=== PATIENT | female | born 1935 | race Caucasian/White ===

== ENCOUNTER 2017-03-08 16:02 | Inpatient (IN) | payer MEDICARE, MEDICAID ==
--- NOTE | 2017-03-08 16:57 | ED PDOC ---
HPI: Back Time Seen by Provider: 03/08/17 16:17 Chief Complaint (Nursing): Back Pain Chief Complaint (Provider): Back Pain and foot pain History Per: Patient History/Exam Limitations: no limitations Onset/Duration Of Symptoms: Hrs ([id number]) Additional History Per: Family (Son) Additional Complaint(s): Annel Perez is an 81 year old female with a past medical history of hypertension, diabetes, deep vein thrombosis, and Alzheimer disease who presents to the ED accompanied by her son with a chief complaint of back and foot pain onset this morning. Associated symptoms include neck pain but denies any loss of consciousness, focal weakness, or blurry vision. Of note patient has Alzheimer disease. Patient states at 2:30 am she fell off her bed. Patient is unable to get up and walk without alot of assistance since then. Has since been in bed. Patient son believes she was sleeping too close to the edge, fell and hit her head on the night stand. PMD: Dr. Brady Terry. Past Medical History Reviewed: Historical Data, Nursing Documentation, Vital Signs Vital Signs: Last Vital Signs Temp 98.2 F 03/08/17 16:05 Pulse 82 03/08/17 16:05 Resp 20 03/08/17 16:05 BP 152/58 H 03/08/17 16:05 Pulse Ox 98 03/08/17 16:05 - Medical History PMH: Alzheimer's Disease, Diabetes, Deep Vein Thrombosis, HTN, Hypercholesterolemia Denies: Chronic Kidney Disease - Surgical History Surgical History: No Surg Hx - Family History Family History: States: Unknown Family Hx - Social History Current smoker - smoking cessation education provided: No Ex-Smoker (has not smoked in the last 12 months): No Alcohol: None Drugs: Denies - Immunization History Hx Tetanus Toxoid Vaccination: No Hx Influenza Vaccination: No Hx Pneumococcal Vaccination: No - Home Medications Home Medications: Ambulatory Orders Medication Instructions Recorded Folic Acid/Vit Bcomp,C/Cu/Zinc 1 tab PO DAILY 12/20/14 [Folbee Plus Cz Tablet] Insulin Glargine,Hum.rec.anlog 6 unit SC DAILY 12/20/14 [Lantus] Memantine HCl [Namenda Xr] 28 mg PO DAILY 12/20/14 Metolazone 5 mg PO QOD6 12/20/14 Pioglitazone HCl/Glimepiride 1 tab PO DAILY 12/20/14 [Duetact 30-2 mg Tablet] Rosuvastatin Calcium [Crestor] 10 mg PO HS 12/20/14 Sevelamer Carbonate [Renvela] 800 mg PO BID 12/20/14 Sitagliptin Phosphate [Januvia] 100 mg PO DAILY 12/20/14 Cefuroxime Axetil [Cefuroxime] 500 mg PO BID #20 tablet 11/07/16 Rivastigmine 3 mg PO BID 11/07/16 - Allergies Allergies/Adverse Reactions: Allergies Allergy/AdvReac Type Severity Reaction Status Date / Time No Known Allergies Allergy Verified 11/07/16 15:34 Review of Systems ROS Statement: Except As Marked, All Systems Reviewed And Found Negative Eyes: Negative for: Vision Change Musculoskeletal: Positive for: Neck Pain, Back Pain, Foot Pain Neurological: Negative for: Weakness (No focal weakness), Other (No Loss of consciousness) - Laboratory Results Result Diagrams: 03/08/17 17:28 03/08/17 17:28 Interpretation Of Abn Labs: Elevated BUN/Cr similar to previous, otherwise no emergent clinically significant lab abnormalities. - ECG ECG Rhythm: Positive for: Normal ST Segment, Sinus Rhythm (w PACs) O2 Sat by Pulse Oximetry: 98 Pulse Ox Interpretation: Normal - Radiology X-Ray: Read By Radiologist - Progress ED Course And Treament: 1634: Foot PROCEDURE: Bilateral Feet Radiographs. HISTORY: bilateral foot pain with hematoma s/p fall COMPARISON: None. FINDINGS: BONES: Right Foot: Suspected nondisplaced fracture 5th metatarsal head. No other fracture identified. Left Foot: Normal. No fracture. JOINTS: Right Foot: Normal. No osteoarthritis. Left Foot: Normal. No osteoarthritis. SOFT TISSUES: Right Foot: Normal. Left Foot: Normal. OTHER FINDINGS: None. IMPRESSION: Suspected nondisplaced fracture right 5th metatarsal head. Please correlate with exam. No other significant abnormality is identified. 1634: Chest PROCEDURE: CHEST RADIOGRAPH, 1 VIEW HISTORY: fall injury COMPARISON: 11/02/2011 FINDINGS: LUNGS: Clear. PLEURA: No pneumothorax or pleural fluid seen. CARDIOVASCULAR: Normal. OSSEOUS STRUCTURES: Nondisplaced fracture right 6th rib laterally, of indeterminate age. Please correlate with clinical exam. No other fracture identified. VISUALIZED UPPER ABDOMEN: Normal. OTHER FINDINGS: None. IMPRESSION: Nondisplaced fracture right 6th rib laterally, indeterminate age. Please correlate with exam. Otherwise unremarkable examination. 1633: Thoracic Spine HISTORY: back pain s/p fall COMPARISON: No prior. FINDINGS: BONES: Mild anterior T12 wedge compression deformity of indeterminate age. Remaining vertebral bodies are maintained in height. Normal vertebral alignment is maintained. There is mild thoracic levo scoliotic curvature. DISC SPACES: Normal. SOFT TISSUES: Normal. OTHER FINDINGS: None. IMPRESSION: Mild anterior T12 wedge compression deformity of indeterminate age. Mild thoracic levoscoliosis. 1633: Lumbar Spine PROCEDURE: Radiographs of the Lumbar Spine. HISTORY: back pain s/p fall COMPARISON: No prior. FINDINGS: BONES: Mild T12 anterior wedge compression deformity, age indeterminate. . The remaining vertebral bodies are maintained in height. The transverse processes and posterior elements appear intact. DISC SPACES: Unremarkable. OTHER FINDINGS: None. IMPRESSION: Mild T12 anterior wedge compression deformity of indeterminate age. No additional abnormality. 1633: Cervical Spine PROCEDURE: CT Cervical Spine without contrast HISTORY: <fall head injury neck pain> COMPARISON: None available. TECHNIQUE: Axial computed tomography images were obtained of the cervical spine without the use of intravenous contrast. Coronal and sagittal reformatted images were created and reviewed. Radiation dose: Total exam DLP = 406.17 mGy-cm. This CT exam was performed using one or more of the following dose reduction techniques: Automated exposure control, adjustment of the mA and/or kV according to patient size, and/or use of iterative reconstruction technique. FINDINGS: VERTEBRAE: Vertebral bodies are maintained in height. The transverse processes and posterior elements are intact. Incidental note is made of a small ovoid corticated ossific density inferior to the anterior midline C1 vertebra, an accessory ossicle. Normal variant. . . DISCS/SPINAL CANAL/NEURAL FORAMINA: No significant central canal or neural foraminal stenosis. Discs heights are grossly preserved. Possible left parasagittal C6-7 disc herniation of uncertain chronicity. Evaluation on the basis of this CT is limited. Consider examination on a nonemergent basis if clinically warranted. PARASPINAL SOFT TISSUES: Unremarkable. OTHER FINDINGS: None. IMPRESSION: No evidence of fracture or dislocation. Possible left parasagittal disc herniation at C6-7, uncertain chronicity. Consider nonemergent evaluation with magnetic resonance imaging if clinically warranted. 1632: Head PROCEDURE: CT HEAD WITHOUT CONTRAST. HISTORY: fall head injury COMPARISON: 11/02/2011 TECHNIQUE: Axial computed tomography images were obtained through the head/brain without intravenous contrast. Radiation dose: Total exam DLP = 834.64 mGy-cm. This CT exam was performed using one or more of the following dose reduction techniques: Automated exposure control, adjustment of the mA and/or kV according to patient size, and/or use of iterative reconstruction technique. FINDINGS: HEMORRHAGE: No intracranial hemorrhage. BRAIN: No mass effect or edema. Moderate diffuse age-appropriate cerebral atrophy. Mild periventricular white matter lucency consistent microvascular white matter ischemic change. No evidence of acute infarct. VENTRICLES: No hydrocephalus. Incidentally noted asymmetry of the atria of the lateral ventricles unchanged from prior examination and likely developmental in origin. CALVARIUM: Unremarkable. PARANASAL SINUSES: Unremarkable as visualized. No significant inflammatory changes. MASTOID AIR CELLS: Unremarkable as visualized. No inflammatory changes. OTHER FINDINGS: None. IMPRESSION: No intracranial hemorrhage. Age-appropriate involutional changes. Scribe Attestation: Documented by Erica Donahue acting as a scribe for Carlene Smith MD. Provider Scribe Attestation: All medical record entries made by the Scribe were at my direction and personally dictated by me. I have reviewed the chart and agree that the record accurately reflects my personal performance of the history, physical exam, medical decision making, and the department course for this patient. I have also personally directed, reviewed, and agree with the discharge instructions and disposition. Re-evaluation Time: 19:00 Condition: Unchanged Medical Decision Making Medical Decision Making: Back pain with compression fracture, foot fracture, and rib fracture s/p fall. Injuries preventing patient from being able to walk steadily. High likelihood of recurrent fall at home. Needs hospitalization for management, pain control and physical therapy. Disposition - Clinical Impression Clinical Impression: Back pain, Foot fracture, Rib fracture, Wedge compression fracture of twelfth thoracic vertebra Discussed With : Chandni Montalvo Doctor Will See Patient In The: Hospital Counseled Patient/Family Regarding: Studies Performed, Diagnosis - Disposition Disposition Time: 19:00 Condition: FAIR - Pt Status Changed To: Hospital Disposition Of: Inpatient - Admit Certification Admit to Inpatient:: After my assessment, the patient will require hospitalization for at least two midnights. This is because of the severity of symptoms shown, intensity of services needed, and/or the medical risk in this patient being treated as an outpatient. - POA Present On Arrival: Falls Or Trauma, Deep Vein Thrombosis / PE (h/o DVT)
--- NOTE | 2017-03-08 17:08 | CT ---
PROCEDURE: CT HEAD WITHOUT CONTRAST. HISTORY: fall head injury COMPARISON: 11/02/2011 TECHNIQUE: Axial computed tomography images were obtained through the head/brain without intravenous contrast. Radiation dose: Total exam DLP = 834.64 mGy-cm. This CT exam was performed using one or more of the following dose reduction techniques: Automated exposure control, adjustment of the mA and/or kV according to patient size, and/or use of iterative reconstruction technique. FINDINGS: HEMORRHAGE: No intracranial hemorrhage. BRAIN: No mass effect or edema. Moderate diffuse age-appropriate cerebral atrophy. Mild periventricular white matter lucency consistent microvascular white matter ischemic change. No evidence of acute infarct. VENTRICLES: No hydrocephalus. Incidentally noted asymmetry of the atria of the lateral ventricles unchanged from prior examination and likely developmental in origin. CALVARIUM: Unremarkable. PARANASAL SINUSES: Unremarkable as visualized. No significant inflammatory changes. MASTOID AIR CELLS: Unremarkable as visualized. No inflammatory changes. OTHER FINDINGS: None. IMPRESSION: No intracranial hemorrhage. Age-appropriate involutional changes.
--- NOTE | 2017-03-08 17:21 | CT ---
PROCEDURE: CT Cervical Spine without contrast HISTORY: <fall head injury neck pain> COMPARISON: None available. TECHNIQUE: Axial computed tomography images were obtained of the cervical spine without the use of intravenous contrast. Coronal and sagittal reformatted images were created and reviewed. Radiation dose: Total exam DLP = 406.17 mGy-cm. This CT exam was performed using one or more of the following dose reduction techniques: Automated exposure control, adjustment of the mA and/or kV according to patient size, and/or use of iterative reconstruction technique. FINDINGS: VERTEBRAE: Vertebral bodies are maintained in height. The transverse processes and posterior elements are intact. Incidental note is made of a small ovoid corticated ossific density inferior to the anterior midline C1 vertebra, an accessory ossicle. Normal variant. . . DISCS/SPINAL CANAL/NEURAL FORAMINA: No significant central canal or neural foraminal stenosis. Discs heights are grossly preserved. Possible left parasagittal C6-7 disc herniation of uncertain chronicity. Evaluation on the basis of this CT is limited. Consider examination on a nonemergent basis if clinically warranted. PARASPINAL SOFT TISSUES: Unremarkable. OTHER FINDINGS: None. IMPRESSION: No evidence of fracture or dislocation. Possible left parasagittal disc herniation at C6-7, uncertain chronicity. Consider nonemergent evaluation with magnetic resonance imaging if clinically warranted.
[2017-03-08 17:54] LABS: BASO # 0.1 K/uL (0.0-0.2); BASO % 1.2 % (0.0-2.0); EOS # 0.4 K/uL (0.0-0.7); EOS % 3.3 % (0.0-4.0); HEMOGLOBIN 11.9 g/dL (12.0-16.0); LYMPH # 3.7 K/uL (1.0-4.3); LYMPH % 32.8 % (20.0-40.0); MEAN CELL VOLUME 93.1 fl (81.0-99.0); MEAN CORPUSCULAR HEMOGLOBIN 30.1 pg (27.0-31.0); MEAN CORPUSCULAR HGB CONC 32.4 g/dL (33.0-37.0); MEAN PLATELET VOLUME 10.3 fl (7.2-11.7); MONO # 1.2 K/uL (0.0-0.8); MONO % 10.3 % (0.0-10.0); NEUT # 5.9 K/uL (1.8-7.0); NEUT % 52.4 % (50.0-75.0); NRBC % 0.3 % (0.0-0.0); RBC 3.95 Mil/uL (3.80-5.20); RED CELL DISTRIBUTION WIDTH 18.3 % (11.5-14.5); WHITE BLOOD COUNT 11.3 K/uL (4.8-10.8)
[2017-03-08 18:00] LABS: ALB/GLOB RATIO 1.4 (1.0-2.1); ALT/SGPT 27 U/L (9-52); AST/SGOT 28 U/L (14-36); BLOOD UREA NITROGEN 51 mg/dl (7-17); CALCIUM 9.6 mg/dL (8.4-10.2); GFR AFRICAN-AMERICAN 33; GFR NON-AFRICAN AMERICAN 27; MAGNESIUM 1.8 MG/DL (1.6-2.3)
--- NOTE | 2017-03-08 18:09 | RAD ---
PROCEDURE: Radiographs of the Lumbar Spine. HISTORY: back pain s/p fall COMPARISON: No prior. FINDINGS: BONES: Mild T12 anterior wedge compression deformity, age indeterminate. . The remaining vertebral bodies are maintained in height. The transverse processes and posterior elements appear intact. DISC SPACES: Unremarkable. OTHER FINDINGS: None. IMPRESSION: Mild T12 anterior wedge compression deformity of indeterminate age. No additional abnormality.
--- NOTE | 2017-03-08 18:10 | RAD ---
HISTORY: back pain s/p fall COMPARISON: No prior. FINDINGS: BONES: Mild anterior T12 wedge compression deformity of indeterminate age. Remaining vertebral bodies are maintained in height. Normal vertebral alignment is maintained. There is mild thoracic levo scoliotic curvature. DISC SPACES: Normal. SOFT TISSUES: Normal. OTHER FINDINGS: None. IMPRESSION: Mild anterior T12 wedge compression deformity of indeterminate age. Mild thoracic levoscoliosis.
[2017-03-08 18:13] LABS: INR 0.9 (0.9-1.2); PARTIAL THROMBOPLASTIN TIME 18.3 Seconds (25.6-37.1); PROTHROMBIN TIME 10.5 Seconds (9.8-13.1)
--- NOTE | 2017-03-08 18:25 | RAD ---
PROCEDURE: CHEST RADIOGRAPH, 1 VIEW HISTORY: fall injury COMPARISON: 11/02/2011 FINDINGS: LUNGS: Clear. PLEURA: No pneumothorax or pleural fluid seen. CARDIOVASCULAR: Normal. OSSEOUS STRUCTURES: Nondisplaced fracture right 6th rib laterally, of indeterminate age. Please correlate with clinical exam. No other fracture identified. VISUALIZED UPPER ABDOMEN: Normal. OTHER FINDINGS: None. IMPRESSION: Nondisplaced fracture right 6th rib laterally, indeterminate age. Please correlate with exam. Otherwise unremarkable examination.
--- NOTE | 2017-03-08 18:28 | RAD ---
PROCEDURE: Bilateral Feet Radiographs. HISTORY: bilateral foot pain with hematoma s/p fall COMPARISON: None. FINDINGS: BONES: Right Foot: Suspected nondisplaced fracture 5th metatarsal head. No other fracture identified. Left Foot: Normal. No fracture. JOINTS: Right Foot: Normal. No osteoarthritis. Left Foot: Normal. No osteoarthritis. SOFT TISSUES: Right Foot: Normal. Left Foot: Normal. OTHER FINDINGS: None. IMPRESSION: Suspected nondisplaced fracture right 5th metatarsal head. Please correlate with exam. No other significant abnormality is identified.
[2017-03-09] MEDS ORDERED: Sodium Chloride 0.45% 1,000 ML IV SCH
--- NOTE | 2017-03-09 01:20 | CP.PCM.CON ---
History of Present Illness - History of Present Illness History of Present Illness: 81 year old female with PMHx Alzheimer's, HTN, DM, DVT seen in the ED complaining of back and foot pain. Patient seen resting in bed comfortably, NAD. Patient is a poor historian. Per ED and son, patient fell off of her bed at 2:30 this morning. Patient denies any pain when asked, but son reports throbbing pain on the side of her right foot and her back. No other pedal complaints at this time. PMH: Alzheimer's, DM, DVT, HTN,HLD PSH: none Meds: see med list FH: non-contributory All: NKDA Past Patient History - Infectious Disease Hx of Infectious Diseases: None - Past Medical History & Family History Past Medical History?: Yes - Past Social History Alcohol: None Drugs: Denies - CARDIAC Hx Cardiac Disorders: Yes - PULMONARY Hx Respiratory Disorders: No - NEUROLOGICAL Hx Neurological Disorder: Yes - HEENT Hx HEENT Problems: No - RENAL Hx Chronic Kidney Disease: No - ENDOCRINE/METABOLIC Hx Endocrine Disorders: Yes - HEMATOLOGICAL/ONCOLOGICAL Hx Blood Disorders: Yes - INTEGUMENTARY Hx Dermatological Problems: No - MUSCULOSKELETAL/RHEUMATOLOGICAL Hx Musculoskeletal Disorders: Yes - GASTROINTESTINAL Hx Gastrointestinal Disorders: No - GENITOURINARY/GYNECOLOGICAL Hx Genitourinary Disorders: No - PSYCHIATRIC Hx Psychophysiologic Disorder: No - SURGICAL HISTORY Hx Surgeries: No - ANESTHESIA Hx Anesthesia: No Hx Anesthesia Reactions: No Hx Malignant Hyperthermia: No Meds Allergies/Adverse Reactions: Allergies Allergy/AdvReac Type Severity Reaction Status Date / Time No Known Allergies Allergy Verified 11/07/16 15:34 - Medications Medications: Current Medications Acetaminophen (Tylenol 325mg Tab) 650 mg PO Q6 PRN PRN Reason: Pain, Mild (1-3) Alendronate Sodium (Fosamax) 70 mg PO QWK [facility] Allopurinol (Zyloprim) 100 mg PO DAILY [facility] Heparin Sodium (Porcine) (Heparin) 5,000 units SC Q8 [facility] PRN Reason: Protocol Last Admin: 03/09/17 00:33 Dose: 5,000 units Home Med (Memantine Hcl/Donepezil Hcl [Namzaric 28 Mg-10 Mg Capsule]) 28 mg PO DAILY [facility] Sodium Chloride (Sodium Chloride 0.45%) 1,000 mls @ 80 mls/hr IV .[id number] [facility] Stop: 03/10/17 00:00 Last Admin: 03/09/17 00:27 Dose: 80 mls/hr Insulin Human Lispro (Humalog) 0 units SC ACCU-CHECK [facility] PRN Reason: Protocol Loratadine (Claritin) 10 mg PO DAILY [facility] Losartan Potassium (Cozaar) 25 mg PO DAILY [facility] Metolazone (Zaroxolyn) 5 mg PO DAILY [facility] Metoprolol Tartrate (Lopressor) 25 mg PO Q12 [facility] Sevelamer HCl (Renagel) 800 mg PO BID [facility] Sitagliptin Phosphate (Januvia) 100 mg PO DAILY [facility] Tramadol HCl (Ultram) 50 mg PO Q6 PRN PRN Reason: Pain, moderate (4-7) Physical Exam - Constitutional Appears: Well, Non-toxic, No Acute Distress - Extremities Exam Additional comments: Vasc: DP and PT pulses palpable 1/4 b/l. CFT <3 seconds to all digits b/l. TG warm to warm. Neuro: Gross sensation diminished. Derm: Ecchymosis noted to the dorsal aspect of right 5th met head. Ortho: pain on palpation noted to the right 5th met head. pain upon ROM 5th MPJ - Neurological Exam Neurological exam: Alert - Psychiatric Exam Psychiatric exam: Normal Affect, Normal Mood Results - Vital Signs Recent Vital Signs: Last Vital Signs Temp 98.4 F 03/09/17 00:19 Pulse 79 03/09/17 00:19 Resp 20 03/09/17 00:19 BP 152/65 H 03/09/17 00:19 Pulse Ox 98 03/09/17 00:19 - Labs Result Diagrams: 03/08/17 17:28 03/08/17 17:28 Assessment & Plan - Assessment and Plan (Free Text) Assessment: 81 year old female with PMHx HTN, DM, DVT, and Alzheimer's with nondisplaced 5th met head fx, right foot, secondary to trauma. Plan: Patient seen and evaluated at bedside. Discussed with attending, Dr. Negro. Charts, labs, vitals reviewed = afebrile, WBC leukocytosis @ 11.3 Right foot XR reviewed: Suspected nondisplaced fracture right 5th metatarsal head. Per ED note, patient will require hospitalization for at least 2 midnights due to severity of symptoms. Surgical shoe applied to right foot. Patient is to be NWB right foot. Podiatry will continue to monitor while in house. - Date & Time Date: 03/08/17 Time: 18:00
[2017-03-09] MEDS: Insulin Lispro (humaLOG) 100 Units/ml Inj SC SCH ×4 (06:54→22:06)
[2017-03-09] MEDS ORDERED: ALENDRONATE 70 MG TAB PO SCH (09:00)
[2017-03-09] MEDS: metOLazone 5 MG TAB PO SCH (09:21)
--- NOTE | 2017-03-09 11:27 | CP.PCM.CON ---
History of Present Illness - History of Present Illness History of Present Illness: ID: 81 yo female CC: pain in the thoracic spine and r costal margin HPI: p[t sustained fall withpain and restricted ROM thoracic spine/lumbar spine / and costal margin Encounter is accomplished at the bedside in the prescence of the culturally competetnt director of campus recreation her daughter and nurse Sharon Pt had sustained fall with injury to thoacic spine/Lumbar spine and costal margin Past Patient History - Infectious Disease Hx of Infectious Diseases: None - Past Medical History & Family History Past Medical History?: Yes - Past Social History Alcohol: None Drugs: Denies - CARDIAC Hx Cardiac Disorders: Yes - PULMONARY Hx Respiratory Disorders: No - NEUROLOGICAL Hx Neurological Disorder: Yes - HEENT Hx HEENT Problems: No - RENAL Hx Chronic Kidney Disease: No - ENDOCRINE/METABOLIC Hx Endocrine Disorders: Yes - HEMATOLOGICAL/ONCOLOGICAL Hx Blood Disorders: Yes - INTEGUMENTARY Hx Dermatological Problems: No - MUSCULOSKELETAL/RHEUMATOLOGICAL Hx Musculoskeletal Disorders: Yes - GASTROINTESTINAL Hx Gastrointestinal Disorders: No - GENITOURINARY/GYNECOLOGICAL Hx Genitourinary Disorders: No - PSYCHIATRIC Hx Psychophysiologic Disorder: No - SURGICAL HISTORY Hx Surgeries: No - ANESTHESIA Hx Anesthesia: No Hx Anesthesia Reactions: No Hx Malignant Hyperthermia: No Meds Allergies/Adverse Reactions: Allergies Allergy/AdvReac Type Severity Reaction Status Date / Time No Known Allergies Allergy Verified 11/07/16 15:34 - Medications Medications: Current Medications Acetaminophen (Tylenol 325mg Tab) 650 mg PO Q6 PRN PRN Reason: Pain, Mild (1-3) Alendronate Sodium (Fosamax) 70 mg PO QWK [facility] Allopurinol (Zyloprim) 100 mg PO DAILY [facility] Last Admin: 03/09/17 09:24 Dose: 100 mg Heparin Sodium (Porcine) (Heparin) 5,000 units SC Q8 [facility] PRN Reason: Protocol Last Admin: 03/09/17 09:22 Dose: 5,000 units Home Med (Memantine Hcl/Donepezil Hcl [Namzaric 28 Mg-10 Mg Capsule]) 28 mg PO DAILY [facility] Sodium Chloride (Sodium Chloride 0.45%) 1,000 mls @ 80 mls/hr IV .[id number] [facility] Stop: 03/10/17 00:00 Last Admin: 03/09/17 00:27 Dose: 80 mls/hr Insulin Human Lispro (Humalog) 0 units SC ACCU-CHECK [facility] PRN Reason: Protocol Last Admin: 03/09/17 06:54 Dose: Not Given Loratadine (Claritin) 10 mg PO DAILY [facility] Last Admin: 03/09/17 09:21 Dose: 10 mg Losartan Potassium (Cozaar) 25 mg PO DAILY [facility] Last Admin: 03/09/17 09:21 Dose: 25 mg Metolazone (Zaroxolyn) 5 mg PO DAILY [facility] Last Admin: 03/09/17 09:21 Dose: 5 mg Metoprolol Tartrate (Lopressor) 25 mg PO Q12 [facility] Last Admin: 03/09/17 09:22 Dose: 25 mg Sevelamer HCl (Renagel) 800 mg PO BID [facility] Last Admin: 03/09/17 09:21 Dose: 800 mg Sitagliptin Phosphate (Januvia) 100 mg PO DAILY [facility] Last Admin: 03/09/17 09:22 Dose: 100 mg Tramadol HCl (Ultram) 50 mg PO Q6 PRN PRN Reason: Pain, moderate (4-7) Physical Exam - Skin Additional comments: systemic exam - wnl encounter in prescenc of culturally competent director of campus recreation Musculoskekltal stance/gait- deferred + tenderness to p[alpation at costal margin no decrease in breath sounds + tenderness to percussion thoracic spine No gross /progressive neuro deficits Results - Vital Signs Recent Vital Signs: Last Vital Signs Temp 98.7 F 03/09/17 08:40 Pulse 61 03/09/17 09:22 Resp 20 03/09/17 08:40 BP 144/61 03/09/17 09:22 Pulse Ox 95 03/09/17 08:40 - Labs Result Diagrams: 03/08/17 17:28 03/08/17 17:28 Labs: Laboratory Results - last 24 hr 03/09/17 03/09/17 00:45 10:40 POC Glucose (mg/dL) 279 H Troponin I < 0.0120 - EKG Data EKG comments: Xray fx 6th rib compression fx thoracici spine compression fx lumbar spine Assessment & Plan - Assessment and Plan (Free Text) Assessment: A- multiple compression fxs - thoracic and lumbar spine - age indeterminate fx 6th rib P activity modificiation possible bracing OOB
[2017-03-09 11:57] LABS: MEAN CELL VOLUME 92.3 fl (81.0-99.0); MEAN CORPUSCULAR HGB CONC 32.5 g/dL (33.0-37.0); RBC 3.67 Mil/uL (3.80-5.20); RED CELL DISTRIBUTION WIDTH 17.7 % (11.5-14.5); WHITE BLOOD COUNT 9.1 K/uL (4.8-10.8)
[2017-03-09 12:25] LABS: BLOOD UREA NITROGEN 44 mg/dl (7-17); GFR AFRICAN-AMERICAN 37; GFR NON-AFRICAN AMERICAN 31
--- NOTE | 2017-03-09 19:13 | CARD ---
APPROVED REPORT EXAM: Two-dimensional and M-mode echocardiogram with Doppler and color Doppler. Other Information Quality : GoodRhythm : NSR INDICATION S/P Fall 2D DIMENSIONS Left Atrium (2D)3.47 (1.6-4.0cm)IVSd0.99 (0.7-1.1cm) Aortic Root (2D)2.60 (2.0-3.7cm)LVDd4.54 (3.9-5.9cm) PWd0.90 (0.7-1.1cm)IVSs1.23 (0.8-1.2cm) LVDs2.41 (2.5-4.0cm)FS (%) 47.1 % PWs1.05 (0.8-1.2cm)LVEF (%)72.0 (>50%) M-Mode DIMENSIONS Left Atrium (MM)3.86 (2.5-4.0cm)IVSd1.16 (0.7-1.1cm) Aortic Root2.56 (2.2-3.7cm)LVDd5.02 (4.0-5.6cm) Aortic Cusp Exc.1.71 (1.5-2.0cm)PWd0.97 (0.7-1.1cm) MV EPSS1.6 (<0.5cm)IVSs1.60 cm FS (%) 35 %LVDs3.25 (2.0-3.8cm) PWs1.57 cmLVEF (%)64 (>50%) Mitral Valve E/A ratio0.0 TDI Lateral E' Peak V8.96cm/sMedial E' Peak V9.04cm/sE/Lateral E'0.0 E/Medial E'0.0 Tricuspid Valve TR Peak [id number] [id number] Peak Gr.33mmHg [id number] LEFT VENTRICLE The left ventricle is normal size. There is borderline concentric left ventricular hypertrophy. The left ventricular function is normal. The left ventricular ejection fraction is within the normal range. There is normal LV segmental wall motion. Transmitral Doppler flow pattern is Grade I-abnormal relaxation pattern. RIGHT VENTRICLE The right ventricle is normal size. There is normal right ventricular wall thickness. The right ventricular systolic function is normal. ATRIA The left atrium is mildly dilated. The right atrium size is normal. AORTIC VALVE The aortic valve is not well visualized. No aortic regurgitation is present. There is no aortic valvular stenosis. MITRAL VALVE The mitral valve is mildly thickened. There is no mitral valve stenosis. There is no mitral valve regurgitation noted. TRICUSPID VALVE The tricuspid valve is normal in structure There is mild tricuspid regurgitation. There is mild pulmonary hypertension. PULMONIC VALVE The pulmonary valve is normal in structure and function. There is no pulmonic valvular regurgitation. GREAT VESSELS The aortic root is normal in size. The IVC was not visualized. PERICARDIAL EFFUSION There is a trace loculated anterior pericardial effusion. <Conclusion> The left ventricle is normal size. There is borderline concentric left ventricular hypertrophy. The left ventricular function is normal. The left ventricular ejection fraction is within the normal range. There is normal LV segmental wall motion. Transmitral Doppler flow pattern is Grade I-abnormal relaxation pattern. There is mild tricuspid regurgitation. There is mild pulmonary hypertension.
--- NOTE | 2017-03-09 20:29 | CARD ---
APPROVED REPORT EKG Measurement Heart [id number] <Conclusion> Sinus rhythm with 1st degree AV block with PVCs Otherwise normal ECG
--- NOTE | 2017-03-09 23:04 | CP.PCM.HP ---
Past Patient History - Infectious Disease Hx of Infectious Diseases: None - Past Medical History & Family History Past Medical History?: Yes - Past Social History Alcohol: None Drugs: Denies - CARDIAC Hx Cardiac Disorders: Yes - PULMONARY Hx Respiratory Disorders: No - NEUROLOGICAL Hx Neurological Disorder: Yes - HEENT Hx HEENT Problems: No - RENAL Hx Chronic Kidney Disease: No - ENDOCRINE/METABOLIC Hx Endocrine Disorders: Yes - HEMATOLOGICAL/ONCOLOGICAL Hx Blood Disorders: Yes - INTEGUMENTARY Hx Dermatological Problems: No - MUSCULOSKELETAL/RHEUMATOLOGICAL Hx Musculoskeletal Disorders: Yes - GASTROINTESTINAL Hx Gastrointestinal Disorders: No - GENITOURINARY/GYNECOLOGICAL Hx Genitourinary Disorders: No - PSYCHIATRIC Hx Psychophysiologic Disorder: No - SURGICAL HISTORY Hx Surgeries: No - ANESTHESIA Hx Anesthesia: No Hx Anesthesia Reactions: No Hx Malignant Hyperthermia: No Meds Allergies/Adverse Reactions: Allergies Allergy/AdvReac Type Severity Reaction Status Date / Time No Known Allergies Allergy Verified 11/07/16 15:34 Results - Vital Signs Recent Vital Signs: Last Vital Signs Temp 98.2 F 03/09/17 16:39 Pulse 78 03/09/17 21:33 Resp 20 03/09/17 16:39 BP 163/70 H 03/09/17 21:33 Pulse Ox 96 03/09/17 16:39 - Labs Result Diagrams: 03/09/17 11:30 03/09/17 11:30 Labs: Laboratory Results - last 24 hr 03/08/17 03/09/17 03/09/17 22:49 00:45 10:40 WBC RBC Hgb Hct MCV MCH MCHC RDW Plt Count Sodium Potassium Chloride Carbon Dioxide Anion Gap BUN Creatinine Est GFR ( Amer) Est GFR (Non-Af Amer) POC Glucose (mg/dL) 236 H 279 H Random Glucose Calcium Troponin I < 0.0120 03/09/17 03/09/17 03/09/17 11:30 11:30 16:10 WBC 9.1 RBC 3.67 L Hgb 11.0 L Hct 33.9 L MCV 92.3 MCH 30.0 MCHC 32.5 L RDW 17.7 H Plt Count 155 Sodium 139 Potassium 3.9 Chloride 103 Carbon Dioxide 27 Anion Gap 12 BUN 44 H Creatinine 1.6 H Est GFR ( Amer) 37 Est GFR (Non-Af Amer) 31 POC Glucose (mg/dL) 56 L Random Glucose 131 H Calcium 9.0 Troponin I < 0.0120 03/09/17 18:00 WBC RBC Hgb Hct MCV MCH MCHC RDW Plt Count Sodium Potassium Chloride Carbon Dioxide Anion Gap BUN Creatinine Est GFR ( Amer) Est GFR (Non-Af Amer) POC Glucose (mg/dL) 148 H Random Glucose Calcium Troponin I
[2017-03-10] MEDS: Insulin Lispro (humaLOG) 100 Units/ml Inj SC SCH ×4 (07:08→22:34)
[2017-03-10] MEDS: metOLazone 5 MG TAB PO SCH (08:49)
[2017-03-10] MEDS ORDERED: guaiFENesin DM 100 mg-10 mg/5 ml UD PO PRN (13:42)
[2017-03-10] MEDS: Dextrose 5%/0.45% NS 1,000 ML IV SCH (14:26)
--- NOTE | 2017-03-11 00:54 | CP.PCM.PN ---
Subjective - Date & Time of Evaluation Date of Evaluation: 03/10/17 Time of Evaluation: 12:55 Objective - Vital Signs/Intake and Output Vital Signs (last 24 hours): Temp Pulse Resp BP Pulse Ox 99.3 F 57 L 20 114/67 99 03/11/17 00:23 03/11/17 00:23 03/11/17 00:23 03/11/17 00:23 03/11/17 00:23 - Medications Medications: Current Medications Acetaminophen (Tylenol 325mg Tab) 650 mg PO Q6 PRN PRN Reason: Pain, Mild (1-3) Alendronate Sodium (Fosamax) 70 mg PO QWK [facility] Allopurinol (Zyloprim) 100 mg PO DAILY [facility] Last Admin: 03/10/17 08:49 Dose: 100 mg Guaifenesin/Dextromethorphan (Robitussin Dm) 5 ml PO Q6 PRN PRN Reason: Cough Last Admin: 03/11/17 00:09 Dose: 5 ml Heparin Sodium (Porcine) (Heparin) 5,000 units SC Q8 [facility] PRN Reason: Protocol Last Admin: 03/10/17 16:44 Dose: 5,000 units Home Med (Memantine Hcl/Donepezil Hcl [Namzaric 28 Mg-10 Mg Capsule]) 28 mg PO DAILY [facility] Dextrose/Sodium Chloride (Dextrose 5%/0.45% Ns 1000 Ml) 1,000 mls @ 80 mls/hr IV .[id number] [facility] Stop: 03/11/17 14:07 Last Admin: 03/10/17 14:26 Dose: 80 mls/hr Insulin Human Lispro (Humalog) 0 units SC ACCU-CHECK [facility] PRN Reason: Protocol Last Admin: 03/10/17 22:34 Dose: Not Given Loratadine (Claritin) 10 mg PO DAILY [facility] Last Admin: 03/10/17 08:47 Dose: 10 mg Losartan Potassium (Cozaar) 25 mg PO DAILY [facility] Last Admin: 03/10/17 08:48 Dose: 25 mg Metolazone (Zaroxolyn) 5 mg PO DAILY [facility] Last Admin: 03/10/17 08:49 Dose: 5 mg Metoprolol Tartrate (Lopressor) 25 mg PO Q12 [facility] Last Admin: 03/10/17 21:34 Dose: Not Given Sevelamer HCl (Renagel) 800 mg PO BID [facility] Last Admin: 03/10/17 16:44 Dose: Not Given Sitagliptin Phosphate (Januvia) 100 mg PO DAILY [facility] Last Admin: 03/10/17 08:49 Dose: 100 mg Tramadol HCl (Ultram) 50 mg PO Q6 PRN PRN Reason: Pain, moderate (4-7) Last Admin: 03/09/17 21:33 Dose: 50 mg - Labs Labs: 03/09/17 11:30 03/09/17 11:30 PT 10.5 Seconds (9.8-13.1) 03/08/17 17:28 INR 0.9 (0.9-1.2) 03/08/17 17:28 APTT 18.3 Seconds (25.6-37.1) L 03/08/17 17:28
[2017-03-11] MEDS: Dextrose 5%/0.45% NS 1,000 ML IV SCH ×2 (03:41→04:55)
[2017-03-11] MEDS: Insulin Lispro (humaLOG) 100 Units/ml Inj SC SCH ×4 (06:57→23:36)
[2017-03-11] MEDS: metOLazone 5 MG TAB PO SCH (08:28)
[2017-03-11] MEDS: DONEPEZIL HCL PO SCH (16:52)
[2017-03-11] MEDS: MEMANTINE HCL PO SCH (16:52)
--- NOTE | 2017-03-11 23:37 | CP.PCM.PN ---
Subjective - Date & Time of Evaluation Date of Evaluation: 03/11/17 Time of Evaluation: 20:45 Objective - Vital Signs/Intake and Output Vital Signs (last 24 hours): Temp Pulse Resp BP Pulse Ox 98.1 F 64 18 121/64 97 03/11/17 15:43 03/11/17 21:07 03/11/17 15:43 03/11/17 21:07 03/11/17 15:43 - Medications Medications: Current Medications Acetaminophen (Tylenol 325mg Tab) 650 mg PO Q6 PRN PRN Reason: Pain, Mild (1-3) Alendronate Sodium (Fosamax) 70 mg PO QWK [facility] Allopurinol (Zyloprim) 100 mg PO DAILY [facility] Last Admin: 03/11/17 08:29 Dose: 100 mg Guaifenesin/Dextromethorphan (Robitussin Dm) 5 ml PO Q6 PRN PRN Reason: Cough Last Admin: 03/11/17 00:09 Dose: 5 ml Heparin Sodium (Porcine) (Heparin) 5,000 units SC Q8 [facility] PRN Reason: Protocol Last Admin: 03/11/17 16:54 Dose: 5,000 units Home Med (Memantine Hcl/Donepezil Hcl [Namzaric 28 Mg-10 Mg Capsule]) 28 mg PO DAILY [facility] Last Admin: 03/11/17 16:52 Dose: 28 mg Insulin Human Lispro (Humalog) 0 units SC ACCU-CHECK [facility] PRN Reason: Protocol Last Admin: 03/11/17 23:36 Dose: Not Given Loratadine (Claritin) 10 mg PO DAILY [facility] Last Admin: 03/11/17 08:28 Dose: 10 mg Losartan Potassium (Cozaar) 25 mg PO DAILY [facility] Last Admin: 03/11/17 08:29 Dose: 25 mg Metolazone (Zaroxolyn) 5 mg PO DAILY [facility] Last Admin: 03/11/17 08:28 Dose: 5 mg Metoprolol Tartrate (Lopressor) 25 mg PO Q12 [facility] Last Admin: 03/11/17 21:07 Dose: 25 mg Sevelamer HCl (Renagel) 800 mg PO BID [facility] Last Admin: 03/11/17 16:53 Dose: 800 mg Sitagliptin Phosphate (Januvia) 100 mg PO DAILY [facility] Last Admin: 03/11/17 08:28 Dose: 100 mg Tramadol HCl (Ultram) 50 mg PO Q6 PRN PRN Reason: Pain, moderate (4-7) Last Admin: 03/09/17 21:33 Dose: 50 mg - Labs Labs: 03/09/17 11:30 03/09/17 11:30 PT 10.5 Seconds (9.8-13.1) 03/08/17 17:28 INR 0.9 (0.9-1.2) 03/08/17 17:28 APTT 18.3 Seconds (25.6-37.1) L 03/08/17 17:28
[2017-03-12 00:32] VITALS: RESP 20
[2017-03-12] MEDS: Insulin Lispro (humaLOG) 100 Units/ml Inj SC SCH ×4 (07:01→23:00)
--- NOTE | 2017-03-12 08:58 | CP.PCM.PN ---
Subjective - Date & Time of Evaluation Date of Evaluation: 03/12/17 Time of Evaluation: 07:00 - Subjective Subjective: 81 year old female with PMHx Alzheimer's, HTN, DM, DVT seen at bedside for R 5th met nondisplaced fx. Pt seen resting comfortably in bed, NAD. Patient is accompanied by her daughter at beside. Pt is a poor historian and pt's daughter only is only Urdu speaking. Patient denies any pain to her right foot today. Patient denies any acute overnght events. Patient denies N/V/F/D/C/SOB. No other pedal complaints at this time. Objective - Vital Signs/Intake and Output Vital Signs (last 24 hours): Temp Pulse Resp BP Pulse Ox 98.3 F 59 L 20 148/49 L 98 03/12/17 08:06 03/12/17 08:06 03/12/17 08:06 03/12/17 08:06 03/12/17 08:06 - Medications Medications: Current Medications Acetaminophen (Tylenol 325mg Tab) 650 mg PO Q6 PRN PRN Reason: Pain, Mild (1-3) Alendronate Sodium (Fosamax) 70 mg PO QWK [facility] Allopurinol (Zyloprim) 100 mg PO DAILY [facility] Last Admin: 03/11/17 08:29 Dose: 100 mg Guaifenesin/Dextromethorphan (Robitussin Dm) 5 ml PO Q6 PRN PRN Reason: Cough Last Admin: 03/11/17 00:09 Dose: 5 ml Heparin Sodium (Porcine) (Heparin) 5,000 units SC Q8 [facility] PRN Reason: Protocol Last Admin: 03/12/17 01:19 Dose: 5,000 units Home Med (Memantine Hcl/Donepezil Hcl [Namzaric 28 Mg-10 Mg Capsule]) 28 mg PO DAILY [facility] Last Admin: 03/11/17 16:52 Dose: 28 mg Insulin Human Lispro (Humalog) 0 units SC ACCU-CHECK [facility] PRN Reason: Protocol Last Admin: 03/12/17 07:01 Dose: Not Given Loratadine (Claritin) 10 mg PO DAILY [facility] Last Admin: 03/11/17 08:28 Dose: 10 mg Losartan Potassium (Cozaar) 25 mg PO DAILY [facility] Last Admin: 03/11/17 08:29 Dose: 25 mg Metolazone (Zaroxolyn) 5 mg PO DAILY [facility] Last Admin: 03/11/17 08:28 Dose: 5 mg Metoprolol Tartrate (Lopressor) 25 mg PO Q12 [facility] Last Admin: 03/11/17 21:07 Dose: 25 mg Sevelamer HCl (Renagel) 800 mg PO BID [facility] Last Admin: 03/11/17 16:53 Dose: 800 mg Sitagliptin Phosphate (Januvia) 100 mg PO DAILY [facility] Last Admin: 03/11/17 08:28 Dose: 100 mg - Labs Labs: 03/09/17 11:30 03/09/17 11:30 PT 10.5 Seconds (9.8-13.1) 03/08/17 17:28 INR 0.9 (0.9-1.2) 03/08/17 17:28 APTT 18.3 Seconds (25.6-37.1) L 03/08/17 17:28 - Constitutional Appears: Well, Non-toxic, No Acute Distress - Extremities Exam Additional comments: Vasc: DP and PT pulses palpable 1/4. CFT <3 seconds to all digits. TG cool to cool Neuro: Gross sensation diminished. Derm: Ecchymosis noted to the dorsal aspect of right 5th met head. Ortho: No pain on palpation noted to the right 5th met head. No pain upon ROM 5th MPJ - Neurological Exam Neurological Exam: Awake - Psychiatric Exam Psychiatric exam: Normal Affect, Normal Mood Assessment and Plan - Assessment and Plan (Free Text) Assessment: 81 year old female with PMHx HTN, DM, DVT, and Alzheimer's with nondisplaced 5th met head fx, right foot, secondary to trauma. Plan: Patient seen and evaluated at bedside. Discussed with attending, Dr. Negro. Charts, labs, vitals reviewed = afebrile Continue wearing surgical shoe R foot. Patient to continue NWB R foot Podiatry will continue to monitor while in house.
[2017-03-12] MEDS: MEMANTINE HCL PO SCH ×2 (10:06→10:10)
[2017-03-12] MEDS: DONEPEZIL HCL PO SCH ×2 (10:06→10:10)
[2017-03-12] MEDS: metOLazone 5 MG TAB PO SCH (10:10)
[2017-03-12] MEDS: Pantoprazole 40 mg EC Tab PO SCH (12:03)
--- NOTE | 2017-03-12 12:59 | CP.PCM.CON ---
History of Present Illness - History of Present Illness History of Present Illness: SPINE CONSULT Pt seen and examined. Pt's daughter present and served as sorter pricer. Full consult dictated. Rec MRI of L-S spine to r/o occult injury to lower spine/ pelvis where pt c/o pain. OK to mobilize w PT. Past Patient History - Infectious Disease Hx of Infectious Diseases: None - Past Medical History & Family History Past Medical History?: Yes - Past Social History Alcohol: None Drugs: Denies - CARDIAC Hx Cardiac Disorders: Yes - PULMONARY Hx Respiratory Disorders: No - NEUROLOGICAL Hx Neurological Disorder: Yes - HEENT Hx HEENT Problems: No - RENAL Hx Chronic Kidney Disease: No - ENDOCRINE/METABOLIC Hx Endocrine Disorders: Yes - HEMATOLOGICAL/ONCOLOGICAL Hx Blood Disorders: Yes - INTEGUMENTARY Hx Dermatological Problems: No - MUSCULOSKELETAL/RHEUMATOLOGICAL Hx Musculoskeletal Disorders: Yes - GASTROINTESTINAL Hx Gastrointestinal Disorders: No - GENITOURINARY/GYNECOLOGICAL Hx Genitourinary Disorders: No - PSYCHIATRIC Hx Psychophysiologic Disorder: No - SURGICAL HISTORY Hx Surgeries: No - ANESTHESIA Hx Anesthesia: No Hx Anesthesia Reactions: No Hx Malignant Hyperthermia: No Meds Allergies/Adverse Reactions: Allergies Allergy/AdvReac Type Severity Reaction Status Date / Time No Known Allergies Allergy Verified 11/07/16 15:34 - Medications Medications: Current Medications Acetaminophen (Tylenol 325mg Tab) 650 mg PO Q6 PRN PRN Reason: Pain, Mild (1-3) Alendronate Sodium (Fosamax) 70 mg PO QWK [facility] Allopurinol (Zyloprim) 100 mg PO DAILY [facility] Last Admin: 03/12/17 10:12 Dose: 100 mg Guaifenesin/Dextromethorphan (Robitussin Dm) 5 ml PO Q6 PRN PRN Reason: Cough Last Admin: 03/11/17 00:09 Dose: 5 ml Heparin Sodium (Porcine) (Heparin) 5,000 units SC Q8 [facility] PRN Reason: Protocol Last Admin: 03/12/17 10:13 Dose: 5,000 units Home Med (Memantine Hcl/Donepezil Hcl [Namzaric 28 Mg-10 Mg Capsule]) 28 mg PO DAILY [facility] Last Admin: 03/12/17 10:10 Dose: 28 mg Insulin Human Lispro (Humalog) 0 units SC ACCU-CHECK [facility] PRN Reason: Protocol Last Admin: 03/12/17 12:07 Dose: 1 unit Loratadine (Claritin) 10 mg PO DAILY [facility] Last Admin: 03/12/17 10:12 Dose: 10 mg Losartan Potassium (Cozaar) 25 mg PO DAILY [facility] Last Admin: 03/12/17 10:11 Dose: 25 mg Metolazone (Zaroxolyn) 5 mg PO DAILY [facility] Last Admin: 03/12/17 10:10 Dose: 5 mg Metoprolol Tartrate (Lopressor) 25 mg PO Q12 [facility] Last Admin: 03/12/17 10:06 Dose: 25 mg Pantoprazole Sodium (Protonix Ec Tab) 40 mg PO DAILY [facility] Last Admin: 03/12/17 12:03 Dose: 40 mg Sevelamer HCl (Renagel) 800 mg PO BID [facility] Last Admin: 03/12/17 10:10 Dose: 800 mg Sitagliptin Phosphate (Januvia) 100 mg PO DAILY [facility] Last Admin: 03/12/17 10:12 Dose: 100 mg Results - Vital Signs Recent Vital Signs: Last Vital Signs Temp 98.3 F 03/12/17 08:06 Pulse 62 03/12/17 10:11 Resp 20 03/12/17 08:06 BP 148/49 L 03/12/17 10:11 Pulse Ox 98 03/12/17 08:06 - Labs Result Diagrams: 03/09/17 11:30 03/09/17 11:30 Labs: Laboratory Results - last 24 hr 03/11/17 03/11/17 03/12/17 15:49 21:36 06:30 POC Glucose (mg/dL) 146 H 125 H 110 03/12/17 11:21 POC Glucose (mg/dL) 164 H
--- NOTE | 2017-03-12 16:38 | MRI ---
PROCEDURE: MR LUMBAR SPINE WITHOUT CONTRAST HISTORY: Pain COMPARISON: None available. TECHNIQUE: Multiecho multiplanar sequences were performed through the lumbar spine without the use of intravenous contrast. FINDINGS: Normal lumbar lordosis. Vertebral body heights are preserved throughout the lumbar spinal segment, however, there is a mild anterior wedge compression fracture of the T12 vertebral body including Schmorl's node centrally with local edema compatible with an acute or subacute fracture. No definite fragmentation or definitive associated central canal stenosis is appreciated at this time. . Marrow signal unremarkable throughout the lumbar spine. . Conus medullaris unremarkable at the level of L2 vertebral body. Paraspinal soft tissues are unremarkable, however, incidental soft tissue edema is appreciated in the perispinal soft tissues related to the T12 vertebral body due to fracture. Incidental bilateral renal cysts are identified greater the right than left kidneys better evaluated by ultrasound or CT the abdomen pelvis with contrast. T12-L1: No disc herniation, spinal canal stenosis or neural foraminal narrowing. L1-2: No disc herniation, spinal canal stenosis or neural foraminal narrowing. L2-3: No disc herniation, spinal canal stenosis or neural foraminal narrowing. L3-4: No disc herniation, spinal canal stenosis or neural foraminal narrowing. L4-5: No disc herniation, spinal canal stenosis or neural foraminal narrowing. L5-S1: No disc herniation, spinal canal stenosis or neural foraminal narrowing. OTHER FINDINGS: [id number] diffuse facet joint degenerative arthropathy appreciate throughout the lumbar spine which with the inferior than superior levels. IMPRESSION: 1. Nonacute lumbar spine MRI with no significant stenosis or definite disc herniation appreciated. However, there is an acute subacute thoracic T12 fracture anteriorly wedged without a definite associated stenosis. Paraspinal soft tissue edema is appreciated. No suspicious fluid changes seen in the intervertebral disc at T11-12 or T12-L1 and osteomyelitis is not suspected accordingly. Further, the endplates appear intact except for Schmorl's node at the upper T12 endplate. Clinically correlate further. 2. Incidental bilateral renal cysts right greater than left kidneys.
--- NOTE | 2017-03-12 16:54 | RAD ---
PROCEDURE: Left Foot Radiographs. HISTORY: Left foot pain, s/p fall COMPARISON: None. FINDINGS: BONES: Normal. No fracture. JOINTS: Normal. SOFT TISSUES: Normal. OTHER FINDINGS: None. IMPRESSION: Normal left foot radiographs.
--- NOTE | 2017-03-12 22:25 | CP.PCM.PN ---
Subjective - Date & Time of Evaluation Date of Evaluation: 03/12/17 Time of Evaluation: 18:50 Objective - Vital Signs/Intake and Output Vital Signs (last 24 hours): Temp Pulse Resp BP Pulse Ox 98.1 F 71 20 145/65 98 03/12/17 16:27 03/12/17 21:21 03/12/17 16:27 03/12/17 21:21 03/12/17 16:27 - Medications Medications: Current Medications Acetaminophen (Tylenol 325mg Tab) 650 mg PO Q6 PRN PRN Reason: Pain, Mild (1-3) Alendronate Sodium (Fosamax) 70 mg PO QWK [facility] Allopurinol (Zyloprim) 100 mg PO DAILY [facility] Last Admin: 03/12/17 10:12 Dose: 100 mg Guaifenesin/Dextromethorphan (Robitussin Dm) 5 ml PO Q6 PRN PRN Reason: Cough Last Admin: 03/11/17 00:09 Dose: 5 ml Heparin Sodium (Porcine) (Heparin) 5,000 units SC Q8 [facility] PRN Reason: Protocol Last Admin: 03/12/17 17:41 Dose: 5,000 units Home Med (Memantine Hcl/Donepezil Hcl [Namzaric 28 Mg-10 Mg Capsule]) 28 mg PO DAILY [facility] Last Admin: 03/12/17 10:10 Dose: 28 mg Insulin Human Lispro (Humalog) 0 units SC ACCU-CHECK [facility] PRN Reason: Protocol Last Admin: 03/12/17 17:40 Dose: Not Given Loratadine (Claritin) 10 mg PO DAILY [facility] Last Admin: 03/12/17 10:12 Dose: 10 mg Losartan Potassium (Cozaar) 25 mg PO DAILY [facility] Last Admin: 03/12/17 10:11 Dose: 25 mg Metolazone (Zaroxolyn) 5 mg PO DAILY [facility] Last Admin: 03/12/17 10:10 Dose: 5 mg Metoprolol Tartrate (Lopressor) 25 mg PO Q12 [facility] Last Admin: 03/12/17 21:21 Dose: 25 mg Pantoprazole Sodium (Protonix Ec Tab) 40 mg PO DAILY [facility] Last Admin: 03/12/17 12:03 Dose: 40 mg Sevelamer HCl (Renagel) 800 mg PO BID [facility] Last Admin: 03/12/17 18:12 Dose: 800 mg Sitagliptin Phosphate (Januvia) 100 mg PO DAILY [facility] Last Admin: 03/12/17 10:12 Dose: 100 mg - Labs Labs: 03/09/17 11:30 03/09/17 11:30 PT 10.5 Seconds (9.8-13.1) 03/08/17 17:28 INR 0.9 (0.9-1.2) 03/08/17 17:28 APTT 18.3 Seconds (25.6-37.1) L 03/08/17 17:28
--- NOTE | 2017-03-12 22:27 | CON ---
DATE: 03/12/2017 REASON FOR CONSULTATION: Fracture of the spine. HISTORY OF PRESENT ILLNESS: The patient is an 81-year-old woman, who was admitted with back pain following a fall. She has dementia and speaks mostly Bulgarian, daughter who is present throughout translated. The daughter relates that mother rolled out of bed and fell on her right side. She has bruising up and down her right side. She was able to get up and around, but the daughter states she found her another morning just kind of sitting, although the mother denied another fall, but when the pain increased, she was brought to the hospital on the and was admitted. X-ray showed fracture of T12 of indeterminate age as well as a right lateral sixth rib fracture of indeterminate age. The patient also complains of pain in her feet. PAST MEDICAL HISTORY: Significant for Alzheimer's as well as non-insulin dependent diabetes, hypertension, and a history of DVT. PAST SURGICAL HISTORY: The daughter states that her mother has no past surgical history. ALLERGIES: She is not allergic to any medicine she knows of. MEDICATIONS: Listed in the chart. FAMILY HISTORY: Text. SOCIAL HISTORY: Text. REVIEW OF SYSTEMS: Text. PHYSICAL EXAMINATION EXTREMITIES: The patient has log rolls in bed with help from her daughter and she has no complaints of pain with palpation along her thoracic spinal column. It is not *------* pelvic area in terms of her posterior ilium, and the lumbosacral region that she complains of pain. She moves both lower extremities actively. Her sensory is intact to light touch throughout. She has good distal strength in her ankles and great toes on each side. She is in a postop shoe on the right foot evidently for a nondisplaced fifth metatarsal neck fracture. However, she does have ecchymosis on the dorsum of her left foot which she complains of pain with palpation. The daughter does state that she had no previous issues in terms of back pain complaints. Evidently at home, she either ambulates with a quad cane or a walker. At this point, I would recommend getting an MRI to look at the age of the fracture T12, but again given that there was a mild wedge deformity present on a CAT scan of her chest in 2011, I suspect that this is not a new fracture and again she is not symptomatic at that level. I would have therapy mobilizer as I can at this point, and we will review the MRI once it has been done and make any further recommendations as needed at that time. Thank you for allowing me to participate in the care of your patient. Tenzin Ang MD
[2017-03-13 00:10] VITALS: PULSE 60
[2017-03-13] MEDS: Insulin Lispro (humaLOG) 100 Units/ml Inj SC SCH ×3 (07:32→17:31)
[2017-03-13 08:09] LABS: ALBUMIN 3.2 g/dL (3.5-5.0)
[2017-03-13 08:12] LABS: ALB/GLOB RATIO 1.1 (1.0-2.1)
[2017-03-13 08:13] LABS: CALCIUM 8.8 mg/dL (8.4-10.2)
[2017-03-13 08:56] LABS: BASO # 0.1 K/uL (0.0-0.2); BASO % 0.8 % (0.0-2.0); EOS # 0.7 K/uL (0.0-0.7); EOS % 6.9 % (0.0-4.0); HEMOGLOBIN 10.8 g/dL (12.0-16.0); LYMPH # 3.9 K/uL (1.0-4.3); LYMPH % 38.8 % (20.0-40.0); MEAN CELL VOLUME 93.2 fl (81.0-99.0); MEAN CORPUSCULAR HEMOGLOBIN 30.9 pg (27.0-31.0); MEAN CORPUSCULAR HGB CONC 33.2 g/dL (33.0-37.0); MEAN PLATELET VOLUME 10.8 fl (7.2-11.7); MONO # 1.2 K/uL (0.0-0.8); MONO % 11.7 % (0.0-10.0); NEUT # 4.2 K/uL (1.8-7.0); NEUT % 41.8 % (50.0-75.0); RBC 3.5 Mil/uL (3.80-5.20); RED CELL DISTRIBUTION WIDTH 17.1 % (11.5-14.5)
[2017-03-13] MEDS: Pantoprazole 40 mg EC Tab PO SCH (08:56)
[2017-03-13] MEDS: metOLazone 5 MG TAB PO SCH (08:56)
[2017-03-13] MEDS: MEMANTINE HCL PO SCH (08:57)
[2017-03-13] MEDS: DONEPEZIL HCL PO SCH (08:57)
[2017-03-13 16:08] VITALS: BP 134/58; TEMP 98.4; O2SAT 96
--- NOTE | 2017-03-15 00:20 | CP.PCM.DIS ---
Provider - Provider Date of Admission: 03/08/17 19:22 Attending physician: Chandni Montalvo MD Time Spent in preparation of Discharge (in minutes): 25 Hospital Course - Lab Results Lab Results: Most Recent Lab Values WBC 10.0 K/uL (4.8-10.8) 03/13/17 06:35 RBC 3.50 Mil/uL (3.80-5.20) L 03/13/17 06:35 Hgb 10.8 g/dL (12.0-16.0) L 03/13/17 06:35 Hct 32.6 % (34.0-47.0) L 03/13/17 06:35 MCV 93.2 fl (81.0-99.0) 03/13/17 06:35 MCH 30.9 pg (27.0-31.0) 03/13/17 06:35 MCHC 33.2 g/dL (33.0-37.0) 03/13/17 06:35 RDW 17.1 % (11.5-14.5) H 03/13/17 06:35 Plt Count 182 K/uL (130-400) 03/13/17 06:35 MPV 10.8 fl (7.2-11.7) 03/13/17 06:35 Neut % (Auto) 41.8 % (50.0-75.0) L 03/13/17 06:35 Lymph % (Auto) 38.8 % (20.0-40.0) 03/13/17 06:35 [place] % (Auto) 11.7 % (0.0-10.0) H 03/13/17 06:35 Eos % (Auto) 6.9 % (0.0-4.0) H 03/13/17 06:35 Baso % (Auto) 0.8 % (0.0-2.0) 03/13/17 06:35 Neut # 4.2 K/uL (1.8-7.0) 03/13/17 06:35 Lymph # 3.9 K/uL (1.0-4.3) 03/13/17 06:35 [place] # 1.2 K/uL (0.0-0.8) H 03/13/17 06:35 Eos # 0.7 K/uL (0.0-0.7) 03/13/17 06:35 Baso # 0.1 K/uL (0.0-0.2) 03/13/17 06:35 PT 10.5 Seconds (9.8-13.1) 03/08/17 17:28 INR 0.9 (0.9-1.2) 03/08/17 17:28 APTT 18.3 Seconds (25.6-37.1) L 03/08/17 17:28 Sodium 137 mmol/l (132-148) 03/13/17 06:35 Potassium 4.5 MMOL/L (3.6-5.0) 03/13/17 06:35 Chloride 106 mmol/L (98-107) 03/13/17 06:35 Carbon Dioxide 27 mmol/L (22-30) 03/13/17 06:35 Anion Gap 9 (10-20) L 03/13/17 06:35 BUN 37 mg/dl (7-17) H 03/13/17 06:35 Creatinine 1.2 mg/dL (0.7-1.2) 03/13/17 06:35 Est GFR ( Amer) 52 03/13/17 06:35 Est GFR (Non-Af Amer) 43 03/13/17 06:35 POC Glucose (mg/dL) 186 mg/dL (65-110) H 03/13/17 15:28 Random Glucose 95 mg/dL (65-105) 03/13/17 06:35 Calcium 8.8 mg/dL (8.4-10.2) 03/13/17 06:35 Phosphorus 3.8 mg/dl (2.5-4.5) 03/08/17 17:28 Magnesium 1.8 MG/DL (1.6-2.3) 03/08/17 17:28 Total Bilirubin 0.4 mg/dl (0.2-1.3) 03/13/17 06:35 AST 30 U/L (14-36) 03/13/17 06:35 ALT 36 U/L (9-52) 03/13/17 06:35 Alkaline Phosphatase 50 U/L (38-126) 03/13/17 06:35 Total Creatine Kinase 71 U/L (30-135) 03/08/17 17:28 Troponin I < 0.0120 ng/mL (0.00-0.120) 03/09/17 11:30 Total Protein 6.1 G/DL (6.3-8.2) L 03/13/17 06:35 Albumin 3.2 g/dL (3.5-5.0) L 03/13/17 06:35 Globulin 2.9 gm/dL (2.2-3.9) 03/13/17 06:35 Albumin/Globulin Ratio 1.1 (1.0-2.1) 03/13/17 06:35 Blood Type A POSITIVE 03/08/17 17:20 Antibody Screen Negative 03/08/17 17:20 BBK History Checked No verified bt 03/08/17 17:20 Discharge Plan - Follow Up Plan Condition: FAIR Disposition: TRANSF TO SNF Instructions: Fall Prevention (DC), Community Acquired Pneumonia (DC), Community Acquired Pneumonia (GEN), Bacterial Pneumonia (DC), Bacterial Pneumonia (GEN), Hypertension (DC), Hypertension (GEN)
== END 2017-03-13 18:28 | DRG 552 ==
LOC: H.ER 16:02 → H.ERHOLD 19:22 → H.MEDSURG1 23:00
PROVIDERS: ADMIT Internal Medicine; ATTEND Internal Medicine
DX: S22.080A Wedge compression fracture of T11-T12 vertebra, initial encounter for closed fracture (principal); G30.9 Alzheimer's disease, unspecified; E11.9 Type 2 diabetes mellitus without complications; S92.354A Nondisplaced fracture of fifth metatarsal bone, right foot, initial encounter for closed fracture; F02.80 Dementia in other diseases classified elsewhere, unspecified severity, without behavioral disturbance, psychotic disturbance, mood disturbance, and anxiety; S22.31XA Fracture of one rib, right side, initial encounter for closed fracture; I10 Essential (primary) hypertension; W06.XXXA Fall from bed, initial encounter; E78.00 Pure hypercholesterolemia, unspecified; Z86.718 Personal history of other venous thrombosis and embolism